=== PATIENT | female | born 1950 | race Caucasian/White ===

== ENCOUNTER → 2020-04-18 | Day surgery (SDC) | payer OTHER ==
[~2020-04-18] VITALS: Ht 160 cm; Wt 74.8 kg
[~2020-04-18] MED LIST: AMITRIPTYLINE H25 M4 PO; CRESTOR20 MG PO; DULOXETINE HCL60 MG PO; ELIQUIS5 MG PO; GABAPENTIN800 M1 PO; HUMALOG KW100 UNIT/1 SUBQ; IPRAT-ALBUT 0.5-3 ML; LANTUS SUBQ; LYRICA300 MG PO; PROAIR HFA8.5 GM INH; PROTONIX40 M2 PO; REQUIP 1 MG TABL1 M1 PO; VICTOZA0.6 MG/0.1 SUBQ
[2020-04-18 14:31] VITALS: BP 134/59
== END | disposition home or self-care (01) ==
LOC: OR 09:03
PROVIDERS: ATTEND Preventive Medicine Occupational Medicine
DX: M48.062 Spinal stenosis, lumbar region with neurogenic claudication (principal); I10 Essential (primary) hypertension; E11.9 Type 2 diabetes mellitus without complications; K21.9 Gastro-esophageal reflux disease without esophagitis; Z98.890 Other specified postprocedural states; Z79.899 Other long term (current) drug therapy; Z90.49 Acquired absence of other specified parts of digestive tract; Z98.51 Tubal ligation status; Z90.710 Acquired absence of both cervix and uterus; Z11.59 Encounter for screening for other viral diseases
CPT/HCPCS: 22869; C1821; 50101; 50386; 50417; 56524; 56526; 57994; 62110; 62900; 70005